=== PATIENT | male | born 1950 | race Caucasian/White ===

== ENCOUNTER 2017-04-17 20:56 | Inpatient (IN) | payer OTHER ==
--- NOTE | 2017-04-17 21:26 | EDPHY ---
H & P <David De Souza S - Last Filed: 04/17/17 22:09> Smoking Status: Never smoked <Taylor Barros - Last Filed: 04/18/17 00:28> Time Seen by Provider: 04/17/17 21:09 HPI/ROS: CHIEF COMPLAINT: Cellulitis left elbow HISTORY OF PRESENT ILLNESS: 66-year-old immunosuppressed male with a known history of renal transplant 2 years ago secondary to diabetes presents with cellulitis to his left elbow. The patient was seen by his primary care provider on Sunday, 4 days ago and started on Keflex. He has been taking Keflex 500 mg three times daily for the last 3-4 days. He states that the redness and swelling or getting worse. The patient states that it started as a small abrasion on his left elbow. He denies any other known trauma or injury. Never had problems with skin infections in the past. He denies fevers or chills. Denies pain in his left axilla. Denies rash. Denies chest pain or difficulty breathing. Denies abdominal pain or vomiting. REVIEW OF SYSTEMS: Constitutional: No fever, no chills. Eyes: No double or blurry vision. ENT: No sore throat. Respiratory: No cough, no shortness of breath. Cardiac: No chest pain. Gastrointestinal: No abdominal pain, vomiting or diarrhea. Genitourinary: No dysuria. Musculoskeletal: No neck or back pain. Skin: No rashes. Neurological: No headache. (Taylor Barros) Past Medical/Surgical History: Kidney transplant on immunosuppressants 2 years ago, type 1 diabetes, hypertension, appendectomy (Taylor aBrros) Social History: Single and lives in [place] Primary care provider is Dr. Quezada (Taylor Barros) Physical Exam: General Appearance: Alert, no distress. Temperature 36.5 degrees. Nontoxic appearing. Eyes: Pupils equal and round. Extraocular motions are all intact. ENT: Mouth: Mucous membranes moist. Respiratory: No wheezing, rhonchi, or rales, lungs are clear to auscultation. Cardiovascular: Regular rate and rhythm. Gastrointestinal: Abdomen is soft and nontender, no masses, no rebound or guarding, bowel sounds normal. Neurological: Alert and oriented x 3, cranial nerves II through XII grossly intact Skin: Healing abrasion noted to the left elbow with surrounding skin redness and warmth. Swelling noted to the left olecranon. Patient has surrounding erythema that extends to the distal aspect of the humerus into the proximal aspect of the left forearm. There is no lymphangitis. No palpable left axillary lymphadenopathy skin is warm and dry. Musculoskeletal: Nontender to palpate along the cervical, thoracic or lumbar spine. Neck is supple. Extremities: Fistula noted in his left arm. Full range of motion and no peripheral edema. Full range of motion of the left elbow. No signs of septic joint. He has no pain with passive range of motion of the left elbow. Psychiatric: Patient is oriented X 3, there is no agitation. (Taylor Barros) Constitutional: Initial Vital Signs Temperature (C) 36.5 C 04/17/17 20:58 Heart Rate 74 04/17/17 20:58 Respiratory Rate 18 04/17/17 20:58 Blood Pressure 154/85 H 04/17/17 20:58 O2 Sat (%) 96 04/17/17 20:58 O2 Delivery Mode Room Air Allergies/Adverse Reactions: hydralazine [Hydralazine] Allergy (Intermediate, Verified 04/17/17 22:04) [place] Faint Penicillins Allergy (Intermediate, Verified 04/17/17 21:01) Rash chlorhexidine Allergy (Verified 04/17/17 21:01) Home Medications: Medication Instructions Recorded Aspirin [Aspirin 81mg (*)] 81 mg PO HS 04/17/17 Atorvastatin Calcium [Lipitor 10 10 mg PO HS 04/17/17 mg (*)] Dronabinol [Marinol] 5 mg PO DAILY PRN 04/17/17 Gabapentin [Neurontin 100 MG (*)] 300 mg PO BID 04/17/17 Insulin Degludec [Tresiba 30 unit SQ DAILY 04/17/17 Flextouch U-100] Insulin Lispro [HumaLOG LISPRO] 4 - 5 unit SC DAILY PRN 04/17/17 Levothyroxine [Synthroid 50 mcg 50 mcg PO DAILY06 04/17/17 (*)] Mycophenolate Sodium [Myfortic] 360 mg PO BID 04/17/17 Pantoprazole Sodium [Protonix 40mg 40 mg PO DAILY PRN 04/17/17 (*)] Tacrolimus [Prograf] 2 mg PO BID 04/17/17 Tamsulosin HCl [Flomax 0.4 MG (*)] 0.4 mg PO HS 04/17/17 predniSONE 5 mg PO DAILY 04/17/17 Medical Decision Making Consult/Admit Bed Type: Ariel [id number] will consult req NPO after MN <David De Souza - Last Filed: 04/17/17 22:09> <Taylor Barros - Last Filed: 04/18/17 00:28> Procedures: The patient's left olecranon was thoroughly cleansed with chlorhexidine. I obtained verbal consent from the patient to aspirate fluid from the left olecranon who was informed about the possibility of bleeding and pain. Small amount of lidocaine with epinephrine was instilled in the wound. I was able to aspirate approximately 6 mL serous colored fluid. Fluid sent to lab for evaluation. The patient tolerated the procedure well. The procedure was performed by myself. (Taylor Barros) ED Course/Re-evaluation: 66-year-old male with a known history of insulin-dependent diabetes, renal transplant on immunosuppressive therapy and history of being on Keflex for last 3 or 4 days presents with worsening cellulitis. Case was discussed with Dr. David De Souza, secondary supervising physician, who also evaluated the patient. Aspiration of the left olecranon bursa was obtained and Gram stain, culture, cell count are all pending from the synovial fluid. Patient was started on vancomycin. White blood cell count is elevated over 9000 with a left shift. Dr. David De Souza spoke with the on-call orthopedic surgeon, Dr. Pawan Neff, who will see this patient in the morning. He will be admitted to the hospitalist for continued management and IV antibiotics. (Taylor Barros) Differential Diagnosis: Including but not limited to cellulitis, olecranon bursitis, septic arthritis, sepsis (Taylor Barros) Other Provider: PHYSICIAN DOCUMENTATION: The patient was evaluated and managed by the Physician Stunt Double and myself. I have reviewed the chart and agree with the findings and plan of care as documented. In addition, I examined the patient myself at 2120. History confirmed as worsening redness and swelling of the left elbow, 3 days on Keflex. He is on 3 different immunosuppressants including chronic prednisone 5 mg a day. Physical findings as follows: Left olecranon bursa swollen red tender and hot to the touch with redness extending both proximally and distally. He can flex and extend the elbow. Likely infectious olecranon bursitis not responding to oral antibiotics for multiple reasons including the fact the patient is immunocompromised. I recommended to the patient he stay for IV antibiotics specifically vancomycin , bursa aspiration, orthopedic surgery consultation for I and D if he is not improving as an inpatient. I am the secondary supervising physician. (David De Souza) - Data Points Laboratory Results: Laboratory Results 04/17/17 21:30 04/17/17 21:30 04/17/17 04/17/17 21:30 21:30 WBC 9.67 10^3/uL H 10^3/uL (3.80-9.50) RBC 5.31 10^6/uL 10^6/uL (4.40-6.38) Hgb 16.6 g/dL g/dL (13.7-17.5) Hct 49.4 % % (40.0-51.0) MCV 93.0 fL fL (81.5-99.8) MCH 31.3 pg pg (27.9-34.1) MCHC 33.6 g/dL g/dL (32.4-36.7) RDW 13.5 % % (11.5-15.2) Plt Count 177 10^3/uL 10^3/uL (150-400) MPV 13.1 fL H fL (8.7-11.7) Neut % (Auto) 86.0 % H % (39.3-74.2) Lymph % (Auto) 5.1 % L % (15.0-45.0) [place] % (Auto) 7.5 % % (4.5-13.0) Eos % (Auto) 0.4 % L % (0.6-7.6) Baso % (Auto) 0.3 % % (0.3-1.7) Nucleat RBC Rel Count 0.0 % % (0.0-0.2) Absolute Neuts (auto) 8.31 10^3/uL H 10^3/uL (1.70-6.50) Absolute Lymphs (auto) 0.49 10^3/uL L 10^3/uL (1.00-3.00) Absolute Monos (auto) 0.73 10^3/uL 10^3/uL (0.30-0.80) Absolute Eos (auto) 0.04 10^3/uL 10^3/uL (0.03-0.40) Absolute Basos (auto) 0.03 10^3/uL 10^3/uL (0.02-0.10) Absolute Nucleated RBC 0.00 10^3/uL 10^3/uL (0-0.01) Immature Gran % 0.7 % % (0.0-1.1) Immature Gran # 0.07 10^3/uL 10^3/uL (0.00-0.10) Sodium 132 mEq/L L mEq/L (135-145) Potassium 5.3 mEq/L H mEq/L (3.5-5.2) Chloride 98 mEq/L mEq/L (97-110) Carbon Dioxide 25 mEq/l mEq/l (22-31) Anion Gap 9 mEq/L mEq/L (8-16) BUN 25 mg/dL H mg/dL (7-23) Creatinine 0.9 mg/dL mg/dL (0.7-1.3) Estimated GFR > 60 Glucose 235 mg/dL H mg/dL (70-100) Calcium 9.0 mg/dL mg/dL (8.5-10.4) Medications Given: Discontinued Medications Vancomycin HCl 1 gm/ Sodium (Chloride) 250 mls @ 250 mls/hr IV EDNOW ONE Stop: 04/17/17 23:29 Last Admin: 04/17/17 22:34 Dose: 250 mls Oxycodone/Acetaminophen (Percocet 5/325) 1 tab PO ONCE ONE Stop: 04/17/17 22:41 Last Admin: 04/17/17 22:55 Dose: 1 tab Departure <David De Souza S - Last Filed: 04/17/17 22:09> <Taylor Barros - Last Filed: 04/18/17 00:28> - Departure Disposition: [facility] Acute Clinical Impression: Cellulitis of left elbow, Olecranon bursitis of left elbow Condition: Good
[2017-04-17 21:44] LABS: PLATELET COUNT 177 10^3/uL (150-400)
[2017-04-17] MEDS ORDERED: VANCOMYCIN HCL/NORMAL SALINE 250 ML IV ONE (21:45)
[2017-04-17] MEDS ORDERED: VANCOMYCIN 1 GM in NS 250 ML IV ONE (22:30)
[2017-04-17] MEDS ORDERED: OXYCODONE/APAP 5/325 TAB PO ONE (22:40)
[2017-04-17] MEDS ORDERED: HYDROCODONE/APAP 5/325 TAB PO PRN (23:01)
[2017-04-17] MEDS ORDERED: ACETAMINOPHEN 325 MG TAB PO PRN (23:01)
[2017-04-17] MEDS ORDERED: LORazepam 0.5 MG TAB PO PRN (23:01)
[2017-04-18] MEDS ORDERED: D50W 25 GM/50 ML VIAL IVP PRN (00:22)
[2017-04-18] MEDS ORDERED: diphenhydrAMINE 25 MG CAP PO PRN (01:47)
--- NOTE | 2017-04-18 02:40 | PDGENHP ---
History and Physical - Chief Complaint Left elbow pain - History of Present Illness Source-patient provides history and appears reliable. EMR was reviewed and case discussed with ED provider. HPI - this is a pleasant 66-year-old gentleman with past medical history significant for type 1 diabetes with the history of kidney disease status post kidney transplant on immunosuppressive therapy, neuropathy, hypothyroidism, GERD , BPH who presents to the emergency department today with complaints of approximately 1 week of worsening left elbow pain, redness, swelling. Patient reports that he sustained an abrasion to his elbow. Over the course of several days he noticed increased swelling redness and pain. Patient has a scabbed lesion that never had any drainage but he noticed an increased area of swelling. He presented to [facility] ED where he was given Keflex 500 three times daily. Patient states he has been taking this as prescribed for the last 3-4 days without significant improvement in his pain or swelling and notes that it has actually worsened. Given his history of immunocompromise patient presented here to the ED for further evaluation. Patient did denies any increased neuropathy more than his baseline in his fingers. He denies any fevers chills or sweats. Additionally, patient has been on clindamycin during this time as well for a dental infection. History Information - Allergies/Home Medication List Allergies/Adverse Reactions: hydralazine [Hydralazine] Allergy (Intermediate, Verified 04/17/17 22:04) [place] Faint Penicillins Allergy (Intermediate, Verified 04/17/17 21:01) Rash chlorhexidine Allergy (Verified 04/17/17 21:01) Home Medications: Aspirin [Aspirin 81mg (*)] 81 mg PO HS 04/17/17 [Last Taken 04/16/17] Atorvastatin Calcium [Lipitor 10 mg (*)] 10 mg PO HS 04/17/17 [Last Taken ] Dronabinol [Marinol] 5 mg PO DAILY PRN 04/17/17 [Last Taken Unknown] Gabapentin [Neurontin 100 MG (*)] 300 mg PO BID 04/17/17 [Last Taken 04/17/17 09 :00] Insulin Degludec [Tresiba Flextouch U-100] 30 unit SQ DAILY 04/17/17 [Last Taken 04/17/17] Insulin Lispro [HumaLOG LISPRO] 4 - 5 unit SC DAILY PRN 04/17/17 [Last Taken Unknown] Levothyroxine [Synthroid 50 mcg (*)] 50 mcg PO DAILY06 04/17/17 [Last Taken 07/30] Mycophenolate Sodium [Myfortic] 360 mg PO BID 04/17/17 [Last Taken 04/17/17 09: 00] Pantoprazole Sodium [Protonix 40mg (*)] 40 mg PO DAILY PRN 04/17/17 [Last Taken Unknown] Tacrolimus [Prograf] 2 mg PO BID 04/17/17 [Last Taken 04/17/17 09:00] Tamsulosin HCl [Flomax 0.4 MG (*)] 0.4 mg PO HS 04/17/17 [Last Taken 04/16/17] predniSONE 5 mg PO DAILY 04/17/17 [Last Taken 04/17/17] I have personally reviewed and updated: family history, medical history, social history, surgical history - Past Medical History Additional medical history: History kidney transplant on immunosuppressive therapy, HLD, diabetes type 1 with history of renal failure, neuropathy hypothyroidism, GERD, BPH - Surgical History Additional surgical history: Kidney transplant, appendectomy, av fistula left arm, laser eye surgery - Social History Smoking Status: Never smoked Alcohol Use: None Drug Use: None Additional social history: Patient lives alone. Brother is in town. Cor status -full Review of Systems Review of Systems: ROS: 10pt was reviewed & negative except for what was stated in HPI & below Physical Exam Physical Exam: Selected Entries 04/17/17 20:58 Blood Pressure Automatic Method Heart Rate 74 Respiratory 18 Rate O2 Sat (%) 96 Temperature (C) 36.5 C Blood Pressure 154/85 H Mean Arterial 108 H Pressure (MAP) O2 Delivery Room Air Mode Temperature Oral Source Temp Pulse Resp BP Pulse Ox 36.4 C 71 20 160/83 H 96 04/18/17 00:27 04/18/17 00:27 04/18/17 00:27 04/18/17 00:27 04/18/17 00:27 Constitutional: no apparent distress, uncomfortable (With movement of left upper extremity), No not in pain Eyes: EOMI, No PERRL (Right pupil asymmetric. No scleral icterus or conjunctival injection) Ears, Nose, Mouth, Throat: moist mucous membranes, other (No nasal discharge) Cardiovascular: regular rate and rhythym, no murmur, rub, or gallop, pulses symmetric bilaterally, No edema Peripheral Pulses: 1+: dorsalis-pedis (R), dorsalis-pedis (L) Respiratory: no respiratory distress, no rales or rhonchi, clear to auscultation Gastrointestinal: normoactive bowel sounds, soft, non-tender abdomen, no palpable masses Genitourinary: no bladder tenderness, No plasencia in urethra Skin: warm, abrasion (Scabbed lesion on the elbow), erythema (Left posterior arm over the elbow. Circular mobile area of of fluid. Extends proximally and distally from the joint.), No mottled Musculoskeletal: full muscle strength, normal joint ROM (Left elbow. Patient is able to move remainder upper and lower extremities), pain with ROM (Left elbow), No generalized weakness Neurologic: AAOx3, sensation intact bilaterally, CN II-XII Intact (Grossly intact.), No facial droop Psychiatric: interacting appropriately, not encephalopathic, anxious (The patient with slightly increased anxiety when discussing need for hospitalization but is reassured cooperative.) Lab Data & Imaging Review 04/17/17 21:30 04/17/17 21:30 WBC 9.67 10^3/uL (3.80-9.50) H 04/17/17 21:30 RBC 5.31 10^6/uL (4.40-6.38) 04/17/17 21:30 Hgb 16.6 g/dL (13.7-17.5) 04/17/17 21:30 Hct 49.4 % (40.0-51.0) 04/17/17 21:30 MCV 93.0 fL (81.5-99.8) 04/17/17 21:30 MCH 31.3 pg (27.9-34.1) 04/17/17 21:30 MCHC 33.6 g/dL (32.4-36.7) 04/17/17 21:30 RDW 13.5 % (11.5-15.2) 04/17/17 21:30 Plt Count 177 10^3/uL (150-400) 04/17/17 21:30 MPV 13.1 fL (8.7-11.7) H 04/17/17 21:30 Neut % (Auto) 86.0 % (39.3-74.2) H 04/17/17 21:30 Lymph % (Auto) 5.1 % (15.0-45.0) L 04/17/17 21:30 [place] % (Auto) 7.5 % (4.5-13.0) 04/17/17 21:30 Eos % (Auto) 0.4 % (0.6-7.6) L 04/17/17 21:30 Baso % (Auto) 0.3 % (0.3-1.7) 04/17/17 21:30 Nucleat RBC Rel Count 0.0 % (0.0-0.2) 04/17/17 21:30 Absolute Neuts (auto) 8.31 10^3/uL (1.70-6.50) H 04/17/17 21:30 Absolute Lymphs (auto) 0.49 10^3/uL (1.00-3.00) L 04/17/17 21:30 Absolute Monos (auto) 0.73 10^3/uL (0.30-0.80) 04/17/17 21:30 Absolute Eos (auto) 0.04 10^3/uL (0.03-0.40) 04/17/17 21:30 Absolute Basos (auto) 0.03 10^3/uL (0.02-0.10) 04/17/17 21:30 Absolute Nucleated RBC 0.00 10^3/uL (0-0.01) 04/17/17 21:30 Immature Gran % 0.7 % (0.0-1.1) 04/17/17 21:30 Immature Gran # 0.07 10^3/uL (0.00-0.10) 04/17/17 21:30 Sodium 132 mEq/L (135-145) L 04/17/17 21:30 Potassium 5.3 mEq/L (3.5-5.2) H 04/17/17 21:30 Chloride 98 mEq/L (97-110) 04/17/17 21:30 Carbon Dioxide 25 mEq/l (22-31) 04/17/17 21:30 Anion Gap 9 mEq/L (8-16) 04/17/17 21:30 BUN 25 mg/dL (7-23) H 04/17/17 21:30 Creatinine 0.9 mg/dL (0.7-1.3) 04/17/17 21:30 Estimated GFR > 60 04/17/17 21:30 Glucose 235 mg/dL (70-100) H 04/17/17 21:30 Calcium 9.0 mg/dL (8.5-10.4) 04/17/17 21:30 Synovial Source SYNOVIAL 04/17/17 22:10 Synovial Color YELLOW (CLS/PALE YL) H 04/17/17 22:10 Synovial Appearance CLOUDY (CLEAR) H 04/17/17 22:10 Synovial WBC 2129 /mm3 (0-150) H 04/17/17 22:10 Synovial RBC 72717 /mm3 (0-0) H 04/17/17 22:10 Synovial Neutrophils 98 % (0-25) H 04/17/17 22:10 Synov Monos/Macrophage 2 % 04/17/17 22:10 Synovial Glucose 207 mg/dL (55-113) H 04/17/17 22:10 Synovial LDH 3769 IU/L 04/17/17 22:10 Assessment & Plan Assessment: Cellulitis of left elbow (Acute) - patient was started on vancomycin. Will continue overnight. Did have a discussion with the patient regarding the dosing schedule for the vancomycin is not a continuous infusion. He became increasingly anxious concerned about hospitalization and close monitoring of his blood sugars etc. I did recommend that the patient stay overnight while awaiting fluid studies and for orthopedic consultation. Patient is amenable to remain in hospital for further treatment at this time. Olecranon bursitis of left elbow (Acute) - fluid studies returned with slightly elevated white count and elevated glucose. G stain and cultures pending. Crystal analysis pending anticipate available in the morning. Hyponatremia - likely falsely elevated in setting of hyperglycemia with close correction. Will plan to monitor in the morning. chronic medical issues Dm 1-resume long-acting insulin per formulary. Treciba with 1-1 conversion with Lantus with a short-acting sliding scale. Patient concerned regarding a.m. Hypoglycemia will add on and 0200 Accu-Chek. D50 p.r.n. Elevated blood pressures - patient he without previous history listed of hypertension. He is not on any antihypertensive medications. s/p kidney transplant on chronic immunosuppressive therapy - hold at this time pending cultures and med rec. Neuropathy-resume gabapentin Hypothyroidism-resume levothyroxine BPH resume Flomax GERD resume home med FEN - p.o. Hydration. Electrolyte monitoring and replacement p.r.n.. Diet as tolerated patient able to select appropriate diet PPX - SCDs. Holding Lovenox pending Orthopedic consultation Core-full Disposition patient admitted to inpatient status on the medical floor. He has failed outpatient therapy for 4 days. Further evaluation required while awaiting lab studies and consultation.
[2017-04-18 03:48] VITALS: RESP 16
--- NOTE | 2017-04-18 06:21 | GCON ---
[f rep st] CONSULTATION DATE OF CONSULTATION: 04/18/2017 REASON FOR CONSULTATION: Left elbow. HISTORY RELATIVE TO CONSULTATION: The patient is a 66-year-old with past medical history of chronic renal failure who presented to the emergency room with increasing redness and swelling over his left posterior elbow. This had presented several days prior. He was placed on Keflex initially with no s ignificant improvement. Upon examination in the emergency room he was noted to have redness and sign ificant swelling in his posterior elbow. Aspiration of his olecranon bursa was performed. PHYSICAL EXAMINATION: On examination today, there is very mild erythema with no recurrence of bursal fluid accumulation. His distal neurovascular exam is intact. He is able to flex and extend his elb ow without difficulty. Fluid obtained from the elbow showed 2129 white cells and almost 56,000 red cells. Cultures were pen ding. ASSESSMENT: Improving left septic olecranon bursitis. PLAN: Based on his significant improvement with aspiration and 1 course of IV antibiotics it was rec ommended that an initial nonoperative treatment course be pursued. If he does not continue to respon d to this management or recurrence occurs operative bursectomy could be considered. /[id number]/MODL
[2017-04-18 06:52] LABS: PLATELET COUNT 168 10^3/uL (150-400)
[2017-04-18] MEDS: INSULIN LISPRO 100 UNIT/ML SC SCH ×3 (08:33→18:50)
--- NOTE | 2017-04-18 09:47 | ASMTCMCOM ---
CM Note CM Note Notes: Patient admitted for olecranon bursitis unresponsive to oral anticbiotics. The bursa was aspirated in the ED, and one dose of IV abx was given. Patient felt better. Ortho evaluated and is hopeful that this conservative treatment is all that will be necessary. They will follow. Patient is normally independent, lives alone. He is an inuslin-dependent diabetic. He has family in [facility]. No therapies ordered, no d/c needs anticipated. Case Management available if needs arise. Date Signed: 04/18/2017 09:47 AM Electronically Signed By:Renata Carpio RN
--- NOTE | 2017-04-18 09:53 | PDMN ---
Medical Necessity Medical necessity: Pt meets IP criteria per MD; est los >2 mn for eval/tx of L elbow cellulitis & olecranon bursitis with failed outpatient therapy; admit for further monitoring, IV abx & Ortho consult; hx diabetes, kidney disease s/p kidney transplant on chronic immunosuppressive therapy & neuropathy; per H&P & order 04/17/17
[2017-04-18] MEDS ORDERED: PANTOPRAZOLE SODIUM 40 MG TAB PO PRN (10:09)
[2017-04-18] MEDS ORDERED: INSULIN LISPRO SC PRN (10:09)
[2017-04-18] MEDS ORDERED: INSULIN DEGLUDEC 30 UNIT SQ SCH (10:15)
[2017-04-18] MEDS ORDERED: NON-FORMULARY NEW DRUG (Mycophenolate Sodium [Myfortic] 360 MG) PO SCH (10:15)
[2017-04-18] MEDS ORDERED: DRONABINOL 2.5 MG CAP PO PRN (10:30)
[2017-04-18] MEDS: INSULIN GLARGINE 100 UNITS/ML UNIT SC SCH (10:34)
[2017-04-18] MEDS: GABAPENTIN 100 MG CAP PO SCH ×3 (10:43→21:25)
--- NOTE | 2017-04-18 10:44 | HOSPPROG ---
Hospitalist Progress Note Assessment/Plan: 66 yo M w dm 1, renal transplant here w olecranon bursitis and cellulitis cellulitis: IV vanc improved per pt olecranon bursitis: improved post drainage agree w dr atkins that bursectomy probably premature await culture, gm stain neg renal transplant: continue meds cr normal dm1: continue insulin proph: lmwh dispo: inpt Subjective: case d/w dr atkins Objective: Vital Signs Temp Pulse Resp BP Pulse Ox 37.0 C 83 16 138/77 H 94 04/18/17 07:33 04/18/17 07:33 04/18/17 07:33 04/18/17 07:33 04/18/17 07:33 Microbiology 04/17/17 22:24 Wound Culture - Final Elbow - Aspirate Laboratory Results 04/18/17 06:42 04/18/17 06:42 04/17/17 04/18/17 04/19/17 05:59 05:59 05:59 Intake Total 250 Balance 250 - Physical Exam Constitutional: no apparent distress, appears nourished Eyes: anicteric sclera, other (r pupil asymmetric) Ears, Nose, Mouth, Throat: moist mucous membranes, hearing normal Cardiovascular: regular rate and rhythym, no murmur, rub, or gallop Respiratory: no respiratory distress, no rales or rhonchi Gastrointestinal: normoactive bowel sounds, soft, non-tender abdomen Genitourinary: no bladder fullness, No plasencia in urethra Skin: warm, normal color Musculoskeletal: other (L elbow is slightly edematous, warmth over elbow. no lymphangitic streaking) Neurologic: AAOx3 Psychiatric: interacting appropriately ICD10 Worksheet Patient Problems: Problems Problem Status Onset Cellulitis of left elbow Acute Olecranon bursitis of left elbow Acute Chronic kidney disease, stage 5, kidney failure Acute Dizziness Acute Retention, urine Acute
[2017-04-18] MEDS: TACROLIMUS 1 MG CAP PO SCH ×2 (10:58→21:14)
[2017-04-18] MEDS: MYCOPHENOLATE SODIUM 180 MG TAB.DR PO SCH ×2 (10:59→21:16)
[2017-04-18] MEDS: predniSONE 5 MG TAB PO SCH (11:02)
[2017-04-18] MEDS: VANCOMYCIN 1.25 GM in NS 250 ML IV SCH ×2 (11:11→22:40)
[2017-04-18] MEDS: LEVOTHYROXINE 50 MCG TAB PO SCH (11:11)
[2017-04-18] MEDS ORDERED: TAMSULOSIN HCL 0.4 MG CAP PO SCH (21:00)
[2017-04-18] MEDS ORDERED: ASPIRIN 81 MG CHEWABLE TAB PO SCH (21:00)
[2017-04-18] MEDS ORDERED: ATORVASTATIN CALCIUM 10 MG TAB PO SCH (21:00)
[2017-04-19] MEDS: LEVOTHYROXINE 50 MCG TAB PO SCH (05:01)
[2017-04-19] MEDS: predniSONE 5 MG TAB PO SCH (08:18)
[2017-04-19] MEDS: TACROLIMUS 1 MG CAP PO SCH (08:18)
[2017-04-19] MEDS: INSULIN GLARGINE 100 UNITS/ML UNIT SC SCH (08:18)
[2017-04-19] MEDS: INSULIN LISPRO 100 UNIT/ML SC SCH ×2 (08:18→12:23)
[2017-04-19 08:28] VITALS: BP 157/91; PULSE 79; TEMP 98.3; O2SAT 96
[2017-04-19] MEDS: ONDANSETRON 4 MG/2 ML VIAL IVP PRN ×2 (08:37→12:26)
--- NOTE | 2017-04-19 09:10 | HOSPPROG ---
Hospitalist Progress Note Assessment/Plan: 66 yo M w dm 1, renal transplant here w olecranon bursitis and cellulitis cellulitis: IV vanc improved per pt olecranon bursitis: improved post drainage agree w dr atkins that bursectomy probably premature await culture, gm stain neg renal transplant: continue meds cr normal dm1: continue insulin proph: lmwh dispo: home today > 30 minutes Subjective: afebrile Objective: Vital Signs Temp Pulse Resp BP Pulse Ox 36.8 C 79 16 157/91 H 96 04/19/17 08:00 04/19/17 08:00 04/19/17 08:00 04/19/17 08:00 04/19/17 08:00 Microbiology 04/17/17 22:24 Gram Stain - Final Elbow - Aspirate Wound Culture - Final Laboratory Results 04/18/17 06:42 04/18/17 06:42 04/18/17 04/19/17 04/20/17 05:59 05:59 05:59 Intake Total 250 800 Balance 250 800 - Physical Exam Constitutional: no apparent distress, appears nourished Eyes: PERRL, anicteric sclera Ears, Nose, Mouth, Throat: moist mucous membranes, hearing normal Cardiovascular: regular rate and rhythym, no murmur, rub, or gallop Respiratory: no respiratory distress, no rales or rhonchi Gastrointestinal: normoactive bowel sounds, soft, non-tender abdomen Genitourinary: No plasencia in urethra Skin: warm, normal color Musculoskeletal: full muscle strength ICD10 Worksheet Patient Problems: Problems Problem Status Onset Cellulitis of left elbow Acute Olecranon bursitis of left elbow Acute Chronic kidney disease, stage 5, kidney failure Acute Dizziness Acute Retention, urine Acute
--- NOTE | 2017-04-19 09:27 | GDS ---
[f rep st] DISCHARGE SUMMARY DISCHARGE DIAGNOSIS: 1. Septic left olecranon bursitis, status post drainage. 2. Left arm cellulitis. 3. Type 1 diabetes. 4. Kidney transplant. Please see admission history and physical by Brooke Nieves. The patient presented with swelling in hi s arm. He had been seen and prescribed Keflex. It got worse. He was seen by Orthopedics who agreed with the drainage that had been performed. Gram stain of that revealed gram-positive cocci. Specia tion has not been performed. There were no crystals. He was initiated on vancomycin, with which he has done well. Micro at this time showing only gram-positive cocci. He is discharged to complete 7 additional days of antibiotics of Keflex, Bactrim. /[id number]/MODL
[2017-04-19] MEDS ORDERED: TACROLIMUS 1 MG CAP PO SCH (12:00)
[2017-04-19] MEDS ORDERED: predniSONE 5 MG TAB PO SCH (12:00)
[2017-04-19] MEDS ORDERED: GABAPENTIN 100 MG CAP PO SCH (12:00)
[2017-04-19] MEDS ORDERED: MYCOPHENOLATE SODIUM 180 MG TAB.DR PO SCH (12:00)
[2017-04-19] MEDS: VANCOMYCIN 1.25 GM in NS 250 ML IV SCH (12:28)
[2017-04-19] MEDS ORDERED: VANCOMYCIN HCL/NORMAL SALINE 250 ML IV ONE (12:30)
== END 2017-04-19 14:01 | disposition home or self-care (01) | DRG 558 ==
LOC: F3N 04-18 00:40
PROVIDERS: ADMIT Internal Medicine; ATTEND Internal Medicine
PROC: 0R9M3ZX Drainage of Left Elbow Joint, Percutaneous Approach, Diagnostic (ICD-10-PCS; principal; 2017-04-17)
DX: M70.22 Olecranon bursitis, left elbow (principal); L03.114 Cellulitis of left upper limb; E10.9 Type 1 diabetes mellitus without complications; E03.9 Hypothyroidism, unspecified; K21.9 Gastro-esophageal reflux disease without esophagitis; N40.0 Benign prostatic hyperplasia without lower urinary tract symptoms; Z79.4 Long term (current) use of insulin; Z94.0 Kidney transplant status
CPT/HCPCS: 96365; J1815; J2405; J3370; J7507; J7512

== ENCOUNTER 2018-01-25 12:13 | Day surgery (SDC) | payer OTHER ==
[~2018-01-25 12:13] MED LIST: VANCOMYCIN PHARMACY TO DOSE MISC ONE; ceFAZolin 2 GM/DEXTROSE 100 ML IV ONE
[2018-01-25] MEDS ORDERED: LR 1,000 ML IV ONE (12:38)
--- NOTE | 2018-01-25 13:17 | PDHPUP ---
History & Physical Update H&P update statement: This history and physical update is based on an assessment of the patient which was completed after admission or registration (within 24 hours), but prior to the surgery/procedure. H&P update: H&P reviewed & patient examined, no change in patient's condition since H&P completed
[2018-01-25] MEDS ORDERED: PAPAVERINE HCL 60 MG/2 ML SDV ONE (13:24)
[2018-01-25] MEDS ORDERED: THROMBIN (BOVINE) 20,000 UNIT SPRAY TP ONE (13:24)
[2018-01-25] MEDS ORDERED: BUPIVACAINE 0.5% 30 ML SDV ONE (13:24)
[2018-01-25] MEDS ORDERED: PROTAMINE SULFATE 50 MG/5 ML VIAL IVP ONE (13:24)
[2018-01-25] MEDS ORDERED: THROMBIN (BOVINE) 5,000 UNIT VIAL TP ONE (13:24)
[2018-01-25] MEDS ORDERED: CEFAZOLIN 2 GM/DEXTROSE/100 ML BAG IV ONE (13:27)
--- NOTE | 2018-01-25 13:30 | PDANEPAE ---
ANE Past Medical History - Cardiovascular History Hx Hypertension: Yes Hx Arrhythmias: No Hx Chest Pain: No Hx Coronary Artery / Peripheral Vascular Disease: Yes Hx CHF / Valvular Disease: No Hx Palpitations: No Cardiovascular History Comment: HTN prior to kidney transplant - Pulmonary History Hx COPD: No Hx Asthma/Reactive Airway Disease: No Hx Recent Upper Respiratory Infection: No Hx Oxygen in Use at Home: No Hx Sleep Apnea: No Sleep Apnea Screening Result - Last Documented: Positive - Neurologic History Hx Cerebrovascular Accident: Yes Hx Seizures: No Hx Dementia: No Neurologic History Comment: [place] stroke 2013 - Endocrine History Hx Diabetes: Yes Endocrine History Comment: type 1 - Renal History Hx Renal Disorders: Yes Renal History Comment: hx of renal failure. one kidney on right - Liver History Hx Hepatic Disorders: No - Neurological & Psychiatric Hx Hx Neurological and Psychiatric Disorders: Yes Neurological / Psychiatric History Comment: balance issues - Cancer History Hx Cancer: No - Congenital Disorder History Hx Congenital Disorders: No - GI History Hx Gastrointestinal Disorders: No - Other Health History Other Health History: bruises easily - Chronic Pain History Chronic Pain: No - Surgical History Prior Surgeries: kidney transplant 2015. ANE Review of Systems Review of Systems: - Exercise capacity METS (RN): 4 METS ANE Patient History - Allergies Allergies/Adverse Reactions: hydralazine [Hydralazine] Allergy (Intermediate, Verified 01/18/18 18:48) [place] Faint Penicillins Allergy (Intermediate, Verified 01/18/18 18:48) Rash chlorhexidine Allergy (Verified 01/18/18 18:48) Unknown - Home Medications Home Medications: Aspirin [Aspirin 81mg (*)] 04/17/17 [Last Taken 01/24/18] Atorvastatin Calcium [Lipitor 10 mg (*)] 04/17/17 [Last Taken 01/24/18] Dronabinol [Marinol] 04/17/17 [Last Taken 01/24/18] Gabapentin [Neurontin 100 MG (*)] 04/17/17 [Last Taken 01/24/18] Insulin Degludec [Tresiba Flextouch U-100] 04/17/17 [Last Taken 01/25/18 15 units] Insulin Lispro [HumaLOG LISPRO] 04/17/17 [Last Taken 01/11/18] Levothyroxine [Synthroid 50 mcg (*)] 04/17/17 [Last Taken 01/24/18] Mycophenolate Sodium [Myfortic] 04/17/17 [Last Taken 01/24/18] Pantoprazole Sodium [Protonix 40mg (*)] 04/17/17 [Last Taken 01/24/18] Tacrolimus [Prograf] 04/17/17 [Last Taken 01/24/18] Tamsulosin HCl [Flomax 0.4 MG (*)] 04/17/17 [Last Taken 01/24/18] predniSONE 04/17/17 [Last Taken 01/24/18] Cephalexin [Keflex (*)] 01/18/18 [Last Taken 01/24/18] - NPO status NPO Since - Liquids (Date): 01/25/18 NPO Since - Liquids (Time): 08:00 NPO Since - Solids (Date): 01/25/18 NPO Since - Solids (Time): 20:00 - Smoking Hx Smoking Status: Never smoked - Family Anes Hx Family Hx Anesthesia Complications: none ANE Labs/Vital Signs - Labs Result Diagrams: 01/25/18 13:15 - Vital Signs Blood Pressure: 154/91 Heart Rate: 81 Respiratory Rate: 16 O2 Sat (%): 96 Height: 180.34 cm Weight: 77.111 kg ANE Physical Exam - Airway Mallampati Score: Class 2 - ASA Status ASA Status: III ANE Anesthesia Plan Anesthesia Plan: GA w LMA
[2018-01-25] MEDS ORDERED: fentaNYL 100 MCG/2 ML INJ ONE (13:32)
[2018-01-25 13:33] LABS: PLATELET COUNT 195 10^3/uL (150-400)
[2018-01-25] MEDS ORDERED: PROPOFOL 200 MG/20 ML VIAL ONE (13:33)
[2018-01-25] MEDS ORDERED: METOCLOPRAMIDE 10 MG/2 ML VIAL ONE (13:34)
[2018-01-25] MEDS ORDERED: ONDANSETRON 4 MG/2 ML VIAL ONE (13:34)
--- NOTE | 2018-01-25 14:51 | POSTOPPROG ---
Post Op Note Date of Operation: 01/25/18 Surgeon: Barron Henderson Accident Examiner: Karen Anesthesiologist: Rosamaria Anesthesia: GET(General Endotracheal) Pre-op Diagnosis: Thrombosed AVF Post-op Diagnosis: same Indication: same, no longer need it for dialysis Procedure: VEEBryan proximal AVF aneurysm excision, distal AVF ligation Findings: +radial pulse, thrombosed AVF, no signs of infection Inf/Abcess present in the surg proc area at time of surgery?: No Depth: Superfical (Skin SQ) EBL: Minimal Specimen(s): VEEBryan thrombosed AVF- permanent
[2018-01-25] MEDS ORDERED: LR 500 ML IV PRN (14:52)
[2018-01-25] MEDS ORDERED: fentaNYL 100 MCG/2 ML INJ IVP PRN (14:52)
[2018-01-25] MEDS ORDERED: NALOXONE HCL 0.4 MG/ML INJ IVP PRN (14:52)
--- NOTE | 2018-01-25 14:53 | POSTANESTH ---
Post Anesthetic Evaluation Cardiovascular Status: Similar to Pre-Op Cond Respiratory Status: Normal, Stable Level of Consciousness/Mental Status: Can Participate in Eval Pain Control: Adequate, Prn Tx Ordered Nausea/Vomiting Control: Adequate, Prn Tx Ordered Complications Possibly Related to Anesthesia: None Noted
[2018-01-25 17:26] VITALS: BP 162/95
--- NOTE | 2018-01-26 04:56 | GOP ---
DATE OF OPERATION: 01/25/2018 SURGEON: Barron Hnederson MD PREOPERATIVE DIAGNOSIS: Thrombosed, painful left arm arteriovenous fistula. POSTOPERATIVE DIAGNOSIS: Thrombosed, painful left arm arteriovenous fistula. PROCEDURE PERFORMED: Resection of a thrombosed arteriovenous fistula with closure of the brachial ar adeline. FINDINGS: The patient was found to have a completely thrombosed AV fistula from the brachial artery anastomosis. ESTIMATED BLOOD LOSS: Negligible. DESCRIPTION OF PROCEDURE: The patient was taken to the operating room where he received satisfactory general endotracheal anesthesia by Dr. Blank. He was placed in the supine position with the left a rm outstretched on an arm board. He was prepped and draped in the usual sterile fashion. An ellipti rob incision was made in the mid upper arm in the aneurysmal area. The fistula was dissected free fr om the skin and subcutaneous tissue. It was transected at a relatively normal vein above and below, and the specimen was removed. Hemostasis was assured. A second incision was made transversely throu gh the previous old scar, and the fistula was dissected free back to its junction with the brachial a rtery. The remaining portion of the fistula was dissected free from the overlying skin and subcutane ous tissue. The fistula was then ligated with 0 silk suture ligatures at the brachial anastomosis, m aintaining good flow in the brachial artery. The specimen was transected and removed. Both wounds w ere irrigated and infiltrated with 0.5% Marcaine and closed with 3-0 Vicryl for the subcutaneous tiss ue and 4-0 Monocryl subcuticular stitch for the skin. All layers were infiltrated with 0.5% Marcaine . DISPOSITION/CONDITION: Taken to recovery room in good condition. COMPLICATIONS: None. /[id number]/MODL
== END 2018-01-25 17:20 | disposition home or self-care (01) ==
LOC: FSGY 12:13
PROVIDERS: ATTEND Surgery
PROC: 05LY0ZZ Occlusion of Upper Vein, Open Approach (ICD-10-PCS; principal; 2018-01-25 13:30)
DX: T82.868A Thrombosis due to vascular prosthetic devices, implants and grafts, initial encounter (principal); T82.848A Pain due to vascular prosthetic devices, implants and grafts, initial encounter; E10.9 Type 1 diabetes mellitus without complications; I10 Essential (primary) hypertension; Z79.4 Long term (current) use of insulin; Z86.73 Personal history of transient ischemic attack (TIA), and cerebral infarction without residual deficits; Z94.0 Kidney transplant status; Z88.0 Allergy status to penicillin
CPT/HCPCS: J0690; J1644; J2405; J2440; J2704; J2720; J2765; J3010

== ENCOUNTER → 2018-02-21 | Outpatient (CLI) | payer OTHER | LOC: BHFA 13:30 | PROVIDERS: ATTEND Internal Medicine Cardiovascular Disease | DX: I25.10 Atherosclerotic heart disease of native coronary artery without angina pectoris (principal) ==